=== PATIENT | female | born 1980 | race American Indian/Alaskan Native ===

== ENCOUNTER 2019-02-26 23:27 | Emergency (ER) | payer BC ==
[2019-02-27 00:13] LABS: Basophils % (Auto) 0.8 % (0.0-1.8); Eosinophils # (Auto) 0.1 K/mm3 (0.0-0.4); Eosinophils % (Auto) 1.1 % (0.0-4.3); Hematocrit 40.3 % (30.3-42.9); Hemoglobin 13.8 gm/dl (10.1-14.3); Lymphocytes # (Auto) 2.5 K/mm3 (1.2-5.4); Lymphocytes % (Auto) 39.8 % (13.4-35.0); Mean Corpuscular HGB Conc 34 % (30-34); Mean Corpuscular Volume 92 fl (79-97); Monocytes # (Auto) 0.5 K/mm3 (0.0-0.8); Monocytes % (Auto) 7.9 % (0.0-7.3); Platelet Count 224 K/mm3 (140-440); Red Blood Count 4.36 M/mm3 (3.65-5.03); Red Cell Distribution Width 13.2 % (13.2-15.2)
[2019-02-27 00:37] LABS: Alanine Aminotransferase 9 units/L (7-56); Albumin 4.4 g/dL (3.9-5); BUN/Creatinine Ratio 14; Blood Urea Nitrogen 10 mg/dL (7-17); Calcium 9.1 mg/dL (8.4-10.2); Hemolysis Index 4
[2019-02-27] MEDS ORDERED: IPRATROPIUM/ALBUTEROL SULFATE 3 ML AMPUL.NEB IH ONE (01:45)
[2019-02-27] MEDS ORDERED: predniSONE 20 MG TAB PO ONE (01:45)
[2019-02-27] MEDS: IBUPROFEN 800 MG TAB PO ONE ×2 (02:10→02:19)
--- NOTE | 2019-02-27 02:10 | XRay Report ---
CHEST PA AND LATERAL VIEWS INDICATION: cough chest wall pain. COMPARISON: None. FINDINGS: Support devices: None. Heart: Within normal limits. Lungs/Pleura: No acute pulmonary or pleural findings. IMPRESSION: 1. No acute findings. Signer Name: Khurram Steiner MD Signed: 02/27/2019 2:05 AM Workstation Name: [id number]
[2019-02-27] MEDS ORDERED: POTASSIUM CHLORIDE ER 20 MEQ TAB PO ONE (02:12)
[2019-02-27] MEDS ORDERED: POTASSIUM CHLORIDE 20 MEQ PACKET PO ONE (02:22)
--- NOTE | 2019-02-27 03:44 | Emergency Department Report ---
ED General Adult HPI - General Chief complaint: Chest Pain Stated complaint: CHEST PAIN HEADACHE BLURRED VISION WEAKNESS Time Seen by Provider: 02/27/19 01:43 Source: patient Mode of arrival: Ambulatory Limitations: No Limitations - History of Present Illness Initial comments: Ms. Narvaez is a 10-year-old female history of bronchitis who presents for a right lateral anterior chest wall pain. Pain described as 4/10 body ache, pain is exacerbated by deep breathing and movement. Pain is relieved by nothing tried. pt denies sob, no hemoptysis, no n/v. pt denies fall, injury, or trauma. Onset/Timin -: days(s) Location: chest, upper extremity, lower extremity Radiation: non-radiation Severity scale (0 -10): 4 Quality: aching Consistency: intermittent Improves with: none Worsens with: movement, other (inspiration ) Associated Symptoms: chest pain, cough. denies: confusion, diaphoresis, fever/chills, headaches, loss of appetite, malaise, nausea/vomiting, rash, shortness of breath, syncope, weakness Treatments Prior to Arrival: none - Related Data Previous Rx's Medication Instructions Recorded Last Taken Type Ibuprofen [Motrin 800 MG tab] 800 mg PO Q8HR PRN #30 tablet 02/27/19 Unknown Rx hydroCHLOROthiazide [HCTZ] 25 mg PO QDAY #30 tablet 02/27/19 Unknown Rx Allergies Allergy/AdvReac Type Severity Reaction Status Date / Time No Known Allergies Allergy Verified 02/26/19 23:31 ED Review of Systems ROS: Stated complaint: CHEST PAIN HEADACHE BLURRED VISION WEAKNESS Other details as noted in HPI Constitutional: denies: chills, fever Eyes: denies: eye pain, eye discharge, vision change ENT: denies: ear pain, throat pain Respiratory: no symptoms reported Cardiovascular: denies: chest pain, palpitations Endocrine: no symptoms reported Gastrointestinal: denies: abdominal pain, nausea, diarrhea Genitourinary: denies: urgency, dysuria, discharge Musculoskeletal: denies: back pain, joint swelling, arthralgia Skin: denies: rash, lesions Neurological: as per HPI, numbness, paresthesias. denies: headache, weakness Psychiatric: denies: anxiety, depression Hematological/Lymphatic: denies: easy bleeding, easy bruising ED Past Medical Hx - Social History Smoking Status: Never Smoker Substance Use Type: Alcohol - Medications Home Medications: Home Medications Medication Instructions Recorded Confirmed Last Taken Type Ibuprofen [Motrin 800 MG tab] 800 mg PO Q8HR PRN #30 tablet 02/27/19 Unknown Rx hydroCHLOROthiazide [HCTZ] 25 mg PO QDAY #30 tablet 02/27/19 Unknown Rx ED Physical Exam - General Limitations: No Limitations General appearance: alert, in no apparent distress - Head Head exam: Present: atraumatic, normocephalic - Eye Eye exam: Present: normal appearance, PERRL, EOMI - ENT ENT exam: Present: normal orophraynx (12 LL), mucous membranes moist, TM's normal bilaterally, normal external ear exam - Neck Neck exam: Present: normal inspection, tenderness, full ROM ( LLO [place]). Absent: meningismus, lymphadenopathy, thyromegaly - Respiratory Respiratory exam: Present: normal lung sounds bilaterally. Absent: respiratory distress, wheezes, rales, rhonchi, stridor, chest wall tenderness, accessory muscle use - Cardiovascular Cardiovascular Exam: Present: regular rate, normal rhythm, normal heart sounds. Absent: systolic murmur, diastolic murmur, rubs, gallop - GI/Abdominal GI/Abdominal exam: Present: soft, distended, normal bowel sounds. Absent: tenderness (is a), bruit, hernia - Rectal Rectal exam: Present: deferred - External exam: Present: normal external exam - Extremities Exam Extremities exam: Present: normal inspection, full ROM, normal capillary refill. Absent: tenderness, pedal edema, joint swelling, calf tenderness - Back Exam Back exam: Present: normal inspection, full ROM, rash noted. Absent: tenderness, CVA tenderness (R), CVA tenderness (L), muscle spasm - Neurological Exam Neurological exam: Present: alert, oriented X3, CN II-XII intact, normal gait, reflexes normal (noted ecchymosis). Absent: motor sensory deficit - Expanded Neurological Exam Expanded Patient oriented to: Present: person, place, time Speech: Present: fluid speech Cranial nerves: EOM's Intact: Normal, Abnormal Right Cerebellar function: Finger to Nose: Normal, Heel to العر[place]ق: Normal, Romberg: Normal Upper motor neuron: Sanjeev Neglect: Normal, Pronator Drift: Normal, Babinski Sign: Normal, Sensory Extinction: Normal Motor strength exam: RUE: 5, LUE: 5, RLE: 5, LLE: 5 (along the a) DTR: bicep (R): 1+, bicep (L): 1+, tricep (R): 1+, tricep (L): 1+, knee (R): 1+, knee (L): 1+, ankle (R): 1+, ankle (L): 1+ Best Eye Response ([place]): (4) open spontaneously Best Motor Response ([place]): (6) obeys commands Best Verbal Response ([place]): (5) oriented [place] Total: 15 - Psychiatric Psychiatric exam: Present: normal affect, normal mood - Skin Skin exam: Present: warm, dry, intact, normal color. Absent: rash ED Course Vital Signs 02/26/19 02/26/19 23:30 23:33 Temperature 98.1 F 98.1 F Pulse Rate 109 H 109 H Respiratory 18 18 Rate Blood Pressure 174/113 174/113 O2 Sat by Pulse 100 100 Oximetry ED Medical Decision Making - Lab Data Result diagrams: 02/26/19 23:48 02/26/19 23:48 Laboratory Last Values WBC 6.4 K/mm3 (4.5-11.0) 02/26/19 23:48 RBC 4.36 M/mm3 (3.65-5.03) 02/26/19 23:48 Hgb 13.8 gm/dl (10.1-14.3) 02/26/19 23:48 Hct 40.3 % (30.3-42.9) 02/26/19 23:48 MCV 92 fl (79-97) 02/26/19 23:48 MCH 32 pg (28-32) 02/26/19 23:48 MCHC 34 % (30-34) 02/26/19 23:48 RDW 13.2 % (13.2-15.2) 02/26/19 23:48 Plt Count 224 K/mm3 (140-440) 02/26/19 23:48 Lymph % (Auto) 39.8 % (13.4-35.0) H 02/26/19 23:48 [place] % (Auto) 7.9 % (0.0-7.3) H 02/26/19 23:48 Eos % (Auto) 1.1 % (0.0-4.3) 02/26/19 23:48 Baso % (Auto) 0.8 % (0.0-1.8) 02/26/19 23:48 Lymph # 2.5 K/mm3 (1.2-5.4) 02/26/19 23:48 [place] # 0.5 K/mm3 (0.0-0.8) 02/26/19 23:48 Eos # 0.1 K/mm3 (0.0-0.4) 02/26/19 23:48 Baso # 0.0 K/mm3 (0.0-0.1) 02/26/19 23:48 Seg Neutrophils % 50.4 % (40.0-70.0) 02/26/19 23:48 Seg Neutrophils # 3.2 K/mm3 (1.8-7.7) 02/26/19 23:48 Sodium 139 mmol/L (137-145) 02/26/19 23:48 Potassium 3.0 mmol/L (3.6-5.0) L 02/26/19 23:48 Chloride 100.6 mmol/L (98-107) 02/26/19 23:48 Carbon Dioxide 24 mmol/L (22-30) 02/26/19 23:48 Anion Gap 17 mmol/L 02/26/19 23:48 BUN 10 mg/dL (7-17) 02/26/19 23:48 Creatinine 0.7 mg/dL (0.7-1.2) 02/26/19 23:48 Estimated GFR > 60 ml/min 02/26/19 23:48 BUN/Creatinine Ratio 14 % 02/26/19 23:48 Glucose 102 mg/dL (65-100) H 02/26/19 23:48 Calcium 9.1 mg/dL (8.4-10.2) 02/26/19 23:48 Total Bilirubin 0.50 mg/dL (0.1-1.2) 02/26/19 23:48 AST 15 units/L (5-40) 02/26/19 23:48 ALT 9 units/L (7-56) 02/26/19 23:48 Alkaline Phosphatase 87 units/L (35-129) 02/26/19 23:48 Total Protein 7.7 g/dL (6.3-8.2) 02/26/19 23:48 Albumin 4.4 g/dL (3.9-5) 02/26/19 23:48 Albumin/Globulin Ratio 1.3 % 02/26/19 23:48 HCG, Qual Negative (Negative) 02/26/19 23:48 - EKG Data EKG shows normal: sinus rhythm (the) Rate: normal ( C) - EKG Data When compared to previous EKG there are: no significant change (IV saline) Interpretation: normal EKG (viebrea late) - Radiology Data Radiology results: report reviewed, image reviewed no infiltrates no opaciityl. - Medical Decision Making this is chest wall pain that is reproducible to deep palpatin. there is no sob no n/v , no wheezing or stridor. pt is tolerating po intake threre is no fever or chills. Critical care attestation.: If time is entered above; I have spent that time in minutes in the direct care of this critically ill patient, excluding procedure time. ED Disposition Clinical Impression: Bronchitis, Chest wall pain URI (upper respiratory infection) Qualifiers: URI type: unspecified viral URI Qualified Code(s): J06.9 - Acute upper respiratory infection, unspecified Disposition: DC-01 TO HOME OR SELFCARE Is pt being admited?: No Does the pt Need Aspirin: No Condition: Stable Instructions: Chronic Bronchitis (ED), Chest Pain (ED) Prescriptions: hydroCHLOROthiazide [HCTZ] 25 mg PO QDAY #30 tablet Ibuprofen [Motrin 800 MG tab] 800 mg PO Q8HR PRN #30 tablet PRN Reason: pain fever Referrals: [facility] [Outside] - 3-5 Days Forms: Work/School Release Form(ED) Time of Disposition: 04:12
[2019-02-27 04:37] VITALS: BP 134/82
== END 2019-02-27 04:37 | disposition home or self-care (01) ==
LOC: ED 23:27
DX: J40 Bronchitis, not specified as acute or chronic (principal); J06.9 Acute upper respiratory infection, unspecified; Z79.1 Long term (current) use of non-steroidal anti-inflammatories (NSAID); Z79.899 Other long term (current) drug therapy
CPT/HCPCS: 36415; 71046; 80053; 84703; 85025; 93005; 93010; 94640; 99284; J7512